=== PATIENT | female | born 1980 | race Two or more races ===

== ENCOUNTER 2024-07-15 22:57 | Emergency (ER) | payer OTHER ==
[~2024-07-15] VITALS: Ht 162.6 cm; Wt 91.6 kg
[~2024-07-15 22:57] MED LIST: SYNTHROID100 MCG PO
[2024-07-16] MEDS ORDERED: KETOROLAC TROMETHAMINE 30 MG VIAL IV STA (01:08)
[2024-07-16] MEDS ORDERED: DEXAMETHASONE SODIUM PHOSPHATE 4 MG/ML VIAL IV STA (01:09)
[2024-07-16] MEDS ORDERED: CLINDAMYCIN PHOSPHATE 150 MG/ML (600mg) IV STA (01:09)
[2024-07-16] MEDS ORDERED: OxyCODONE HCL/APAP UD (PERCOCET) PO STA (01:09)
[2024-07-16] MEDS ORDERED: KETOROLAC TROMETHAMINE 30 MG VIAL ONE (01:34)
[2024-07-16] MEDS ORDERED: DEXAMETHASONE SODIUM PHOSPHATE 4 MG/ML VIAL ONE (01:34)
[2024-07-16] MEDS ORDERED: CLINDAMYCIN PHOSPHATE 150 MG/ML (900mg) ONE (01:34)
[2024-07-16] MEDS ORDERED: CLINDAMYCIN PHOSPHATE 150 MG/ML (300mg) ONE (01:40)
== END 2024-07-16 02:50 | disposition home or self-care (01) ==
LOC: ER 22:58
DX: S02.5XXA Fracture of tooth (traumatic), initial encounter for closed fracture (principal); X58.XXXA Exposure to other specified factors, initial encounter; Y93.89 Activity, other specified; Y92.89 Other specified places as the place of occurrence of the external cause; Y99.8 Other external cause status; K02.9 Dental caries, unspecified; R51.9 Headache, unspecified; Z88.1 Allergy status to other antibiotic agents